=== PATIENT | female | born 1980 | race African-American/Black ===

== ENCOUNTER 2017-01-06 12:43 | Emergency (ER) | payer OTHER ==
[~2017-01-06] VITALS: Ht 157.5 cm; Wt 117.9 kg
[2017-01-06 14:13] LABS: URINE SOURCE CLEAN CATCH
[2017-01-06 14:17] LABS: URINE APPEARANCE CLEAR; URINE BILIRUBIN NEG (NEG); URINE BLOOD NEG (NEG); URINE COLOR YELLOW; URINE GLUCOSE NEG (NEG); URINE KETONE NEG (NEG); URINE LEUKOCYTE ESTERASE NEG (NEG); URINE NITRATE NEG (NEG); URINE PH 5.5 (5-8); URINE PROTEIN NEG (NEG); URINE SPECIFIC GRAVITY 1.018 (1.003-1.035)
[2017-01-06 14:54] LABS: CULTURE INDICATED? NO
[2017-01-09 16:56] LABS: CHLAMYDIA TRACH Not Detected (Not Detected); N GONOR Not Detected (Not Detected)
== END 2017-01-06 15:21 | disposition home or self-care (01) ==
LOC: CED 12:43 → CFTX 12:43
PROVIDERS: Nurse Practitioner
DX: R10.2 Pelvic and perineal pain (principal); G89.29 Other chronic pain; R30.0 Dysuria; I10 Essential (primary) hypertension
CPT/HCPCS: 81003; 87491; 87591; 87808; 87905; 99284